=== PATIENT | female | born 1945 | race Caucasian/White ===

== ENCOUNTER 2021-03-20 06:43 | Day surgery (SDC) | payer MEDICARE, OTHER, SELFPAY ==
[2021-03-20 07:23] VITALS: BP 137/71; PULSE 58; RESP 16; TEMP 36.2; O2SAT 97
[2021-03-20] MEDS: Tropicam./Phenyleph. (1/2.5%) 5 ML BTL OD ×3 (07:29→07:39)
--- NOTE | 2021-03-20 07:48 | W.ANESPRE ---
General Info Date of Service Date Performed: 03/20/21 Height: 5 ft 3 in Weight: 69.2 kg Body Mass Index (BMI): 27.0 Surgical Procedure: Operation Date: 03/20/21 08:40 Proposed Procedures Side Surgeon p Cataract Extraction with IOL Implant Right William Mullen MD Meds Allergies and Home Medications Allergies Allergy/AdvReac Type Severity Reaction Status Date / Time erythromycin base Allergy Intermediate Other (See Unverified 03/18/21 15:36 Comment) Home Medication Medication Instructions Recorded acyclovir 400 mg PO Q8H PRN 03/18/21 citalopram 20 mg PO DAILY 03/18/21 citalopram 40 mg PO DAILY 03/18/21 clobetasol 1 applic TOPICAL BID 03/18/21 donepezil 15 mg PO DAILY 03/18/21 ferrous sulfate 325 mg PO DAILY 03/18/21 hydroxyzine HCl 25 mg PO QID 03/18/21 meloxicam 7.5 mg PO DAILY 03/18/21 mupirocin 1 applic TOPICAL TID 03/18/21 Current Visit Medications: Current Medications Generic Name Dose Route Start Last Admin Trade Name Freq PRN Reason Stop Dose Admin Acetaminophen 1,000 mg 03/20/21 06:00 Acetaminophen 500 Mg Tab PO Q4H PRN PRN Miscellaneous Medication 0 ml 03/20/21 06:00 Prednisolone 1%, Moxifloxacin 0.5%, Nepafenac 0.1% 5ml Btl OD DIRECTED [facility] Miscellaneous Medication 0 ml 03/20/21 06:00 03/20/21 07:39 Tropicam./Phenyleph. (1/2.5%) 5 Ml Btl OD 1 drp DIRECTED KANE Administration Tetracaine HCl 0 ml 03/20/21 06:00 Tetracaine 0.5% 4 Ml Btl OD DIRECTED KANE PFSH Active Problems Active Problems: Problem Status Onset Code Nasal septal perforation J34.89 Nasal obstruction J34.89 Nasal crusting J34.89 Skin infection L08.9 Medical History Medical History Allergic rhinitis Dementia Fe deficiency anemia Hemorrhoid Herpes simplex Hyperlipemia Nasal ulcer Osteoarthritis Tobacco Smoking/Tobacco Use Status: Former Tobacco Use Alcohol Alcohol Intake: never Substance Use Substance use type: does not use Vital Signs and Lab Results Vital Signs Most Recent Vital Signs in EMR: Most Recent Vital Signs Temp Pulse Resp BP Pulse Ox 36.2 C L 58 L 16 137/71 97 03/20/21 07:23 03/20/21 07:23 03/20/21 07:23 03/20/21 07:23 03/20/21 07:23 Lab Results Blood Type / Crossmatch: No Data to Display Complete Blood Count: No Data to Display Complete Metabolic Panel: No Data to Display Liver Function Panel: No Data to Display Coagulation Panel: No Data to Display Cardiac Panel: No Data to Display Arterial Blood Gas: No Data to Display Venous Blood Gas: No Data to Display Pancreas Panel: No Data to Display Thyroid Panel: No Data to Display Infectious Disease: No Data to Display Blood Cultures: No Data to Display Toxicology Panel: No Data to Display Anesthesia Assessment and Plan Anesthesia History Personal History: No History of Anesthesia Complications Family History: No Family History of Anesthesia Complications Exercise Tolerance Exercise Tolerance: Metabolic Equivalents>4 Pertinent Negatives Pertinent Negatives: No Symptoms of GERD Cardiac & Pulmonary Exam Cardiac Exam: Normal S1/S2 Heart Sounds Pulmonary Exam: Clear Bilateral Breath Sounds Airway Exam Known Difficult Airway: No Mallampati Class: 2 Mouth Opening: Normal (> 3cm) Thyromental Distance: Greater than 3 cm Neck Range of Motion: Full ROM Neck Circumference: Normal Teeth Condition: Normal Dentition ASA Classification ASA Score: ASA 2 Emergency Case?: No NPO Status NPO Status: NPO Clears >2 hours, Solids >8 hours Anesthesia Plan Resuscitation Status: Full Code Anesthesia Technique: MAC Anesthesia Airway Planned: Natural Airway Monitors Used: Standard Monitors
[2021-03-20 07:58] VITALS: BMI 27.0
[2021-03-20] MEDS: Balanced Salt Soln.-PLUS 500 ML BAG (08:19)
[2021-03-20] MEDS: Duovisc Viscoelastic System EACH 1 EACH (08:20)
[2021-03-20] MEDS: Lidocaine 1% Pres-Free 5 ML VIAL (08:21)
[2021-03-20] MEDS: Lidocaine 2% Jelly 6 ML SYR (08:22)
[2021-03-20] MEDS: Povidone-Iodine Ophth 30 ML BTL (08:28)
[2021-03-20] MEDS: Tetracaine 0.5% 4 ML BTL OD (08:29)
[2021-03-20 08:40] VITALS: BP 132/69; PULSE 58; RESP 18; TEMP 36.2; O2SAT 99
--- NOTE | 2021-03-20 08:41 | W.PM.DSUDISC ---
Discharge Plan Disposition Patient Disposition: HOME Condition: Good Discharge Details Attending Provider: William Mullen Primary Care Provider: Chelsea Guevara Home Meds and New Rx's Prescriptions: No Action citalopram 40 mg tablet 40 mg PO DAILY RF: 0 clobetasol 0.05 % Cream 1 applic TOPICAL BID RF: 0 acyclovir 400 mg Tablet 400 mg PO Q8H PRNRF: 0 meloxicam 7.5 mg Tablet 7.5 mg PO DAILY RF: 0 citalopram 20 mg tablet 20 mg PO DAILY RF: 0 ferrous sulfate 325 mg (65 mg iron) Tablet 325 mg PO DAILY RF: 0 hydroxyzine HCl 25 mg Tablet 25 mg PO QID RF: 0 mupirocin 2 % Ointment 1 applic TOPICAL TID RF: 0 donepezil 10 mg tablet 15 mg PO DAILY RF: 0 Discharge Instructions Stand Alone Forms: Post-op Topical Cataract, Press Ganey (DSU) Discharge Orders Discharge Orders: Discharge Order (Routine); Ordered 03/20/21 Ordered By: William Mullen DS: Diagnosis Discharge Diagnosis (1) Cortical cataract of right eye: Status: Resolved (2) Nuclear sclerotic cataract of right eye: Status: Resolved
--- NOTE | 2021-03-20 08:43 | W.PM.OP ---
Date of service: 03/20/21 Time of Service: 08:43 Operative Note Operative Note DATE OF PROCEDURE: 03/20/21 PRE-OP DIAGNOSIS: Nuclear/cortical cataract, right eye POST-OP DIAGNOSIS: same PROCEDURE: Cataract extraction using phacoemulsification with intraocular lens implant, right eye SURGEON: William Mullen ANESTHESIA TYPE: Local By Surgeon and MAC Refer to Anesthesia Record ESTIMATED BLOOD LOSS: 0 PATHOLOGY: none sent COMPLICATIONS: None Patient was transported to: same day Patient's condition: stable Implants: [employer] Mani/JUAREZ Tecnis [id number] Indications: Progressive visual loss due to cataract, right eye Procedure Description: CATARACT SURGERY OPERATIVE REPORT PREOPERATIVE DIAGNOSIS: 1. Nuclear/cortical cataract, right eye POSTOPERATIVE DIAGNOSIS: Same OPERATION: 1. Cataract extraction using phacoemulsification with posterior chamber intraocular lens implant, right eye. IOL: IOL Cloth Shearer/Model: Mani [employer] Mani / JUAREZ Tecnis [id number] IOL Power: + 23.0 diopters IOL Serial Number: [id number] Optic Diameter: 6.0mm Haptic/Overall Diameter: 13.0mm PHACO INFO: Edmund BoomBoom Printsurion Vision System with OZil and Active Fluidics Cumulative Dispersed Energy (CDE): 8.06 seconds SURGEON: William Mullen MD, LIANET ANESTHESIA: Monitored Anesthesia Care (MAC), with local sub-tenon's anesthetic infiltration COMPLICATIONS: None SPECIMENS: None INDICATIONS FOR PROCEDURE: The patient is a 75-year-old lady with history of diminished visual acuity in her right eyes secondary to the development of significant nuclear cataract. The option of cataract surgery was offered to the patient and she wished to proceed. She has previously undergone cataract surgery in the left eye in [place]. PROCEDURE: The correct surgical eye was identified and marked as the right eye and the pupil was dilated in the preoperative area using mydriatics and cycloplegics. The dilated pupil size was 6.0 mm. She elected to proceed without oral sedation.. The patient was brought to the operating room where cardiopulmonary monitoring was instituted and surgical time-out was performed, confirming the correct operative eye and IOL power. Topical anesthesia was administered and ophthalmic povidone-iodine 5% was instilled into the conjunctival fornices. Lidocaine gel was applied to the cornea and the roderick-ocular area was prepped with Betadine 10% solution and draped in the usual sterile fashion for intraocular surgery, including an aperture drape. A Tegaderm transparent film dressing was cut in half and used to cover the lashes and lid margins. Care was taken to sequester the lashes and lid margins under the Tegaderm dressing. A lid speculum was placed between the lids of the operative eye and the Deshawn-Benjamín operating microscope was maneuvered into position. Reuben scissors were then used to make a conjunctival buttonhole approximately 6mm posterior to the limbus in the inferonasal quadrant. Blunt dissection was carried out to expose bare sclera, and a blunt-tipped sub-tenon?s anesthesia cannula was introduced and passed posteriorly along the globe where non-preserved plain lidocaine was injected into posterior sub-Tenon?s space. A sideport knife was used to make a paracentesis port inferotemporally. Intraocular phenylephrine/lidocaine was injected into the anterior chamber. The anterior chamber was filled with viscoelastic. A 2.4mm keratome knife was used to create a half-thickness groove at the limbus and then to construct a three-plane near-clear corneal tunnel extending 2.0mm into clear cornea superiortemporally. A flap was raised on the anterior capsule and capsulorhexis forceps were used to complete a continuous curvilinear capsulorhexis of 5.0 mm. Balanced salt solution was then used to perform cortical cleaving hydrodissection and nuclear hydrodelineation until the lens could be freely rotated within the capsular bag. The lens nucleus was then disassembled and removed within the capsular bag and iris plane using phacoemulsification. Residual cortical material was removed using the I/A handpiece. The posterior capsule was carefully polished to remove as much residual lens epithelial cells as safely possible. The capsular bag was then inflated and the anterior chamber deepened with viscoelastic. The lens implant described above was inserted into the capsular bag using the JUAREZ Cherry Log Injector. A Kuglen hook was used to dial the IOL into position. Residual viscoelastic was then removed first from posterior to the IOL, then from the anterior chamber using the I/A handpiece. The lens implant was noted to center nicely within the capsular bag. The incisions were stromally hydrated, and the anterior chamber was reformed using BSS. Then 0.5cc of moxifloxacin 1.0mg/ml were injected into the capsular bag and anterior chamber. The incisions were checked with a Weck spear and found to be secure. Several drops of ophthalmic povidone-iodine 5% were then applied to the eye followed by two drops of Imprimis combination prednisolone/moxifloxacin/nepafenac solution. The drapes were removed and a clear plastic protective eye shield was placed over the eye. The patient was then returned to [facility] Surgery in stable condition.
--- NOTE | 2021-03-20 08:59 | W.ANESPOSTOP ---
Postoperative Evaluation Date, Time and Location Date Performed: 03/20/21 Time Performed: 08:45 Patient Location: Day Surgery Unit Vital Signs Most Recent Imported Vital Signs: Most Recent Vital Signs Temp Pulse Resp BP Pulse Ox 36.2 C L 58 L 18 132/69 99 03/20/21 08:40 03/20/21 08:40 03/20/21 08:40 03/20/21 08:40 03/20/21 08:40 Pain Score Most Recent Pain Score: Most Recent Pain Score Pain Level 0 03/20/21 08:40 Assessment Mental Status: Awake (Alert & Oriented to Patient Baseline) Airway and Respiratory Function: Patent airway with normal (patient baseline) respiratory exam Cardiovascular Function: Hemodynamically Stable Hydration Status: Adequately Hydrated Nausea & Vomiting: No Nausea or Vomiting Pain: Pt. Denies Any Pain Peripheral Nerve Block: Patient did not receive a nerve block
== END 2021-03-20 09:04 | disposition home or self-care (01) ==
PROVIDERS: PCP Internal Medicine; Visit Provider Ophthalmology
PROC: (CPT 66984; principal; 2021-03-20 08:30)
DX: H25.11 Age-related nuclear cataract, right eye (principal)
CPT/HCPCS: 66984; V2632

== ENCOUNTER → 2025-03-07 09:29 | Outpatient (BNVA) | payer MEDICARE, SELFPAY | PROVIDERS: PCP Internal Medicine; Referring Provider Internal Medicine; Visit Provider Nurse Practitioner Adult Health | DX: G30.9 Alzheimer's disease, unspecified (principal); F02.80 Dementia in other diseases classified elsewhere, unspecified severity, without behavioral disturbance, psychotic disturbance, mood disturbance, and anxiety; Z84.89 Family history of other specified conditions | CPT/HCPCS: 99204 ==